=== PATIENT | female | born 1995 | race Two or more races ===

== ENCOUNTER 2025-08-09 08:50 | Emergency (ER) | payer OTHER ==
[~2025-08-09] VITALS: Ht 152.4 cm; Wt 72.6 kg
[2025-08-09 11:07] LABS: BASO % 0.4 % (0.1-1.2); EOS # 0.12 (0.04-0.54); EOS % 1.3 % (0.7-7.0); LYMPH # 3.55 (1.18-3.74); LYMPH % 37.3 % (19.3-53.1); MEAN PLATELET VOLUME 10.00 fl (9.4-12.4); MONO # 0.45 (0.24-0.82); MONO % 4.7 % (4.7-12.5); NEUT # 5.35 (1.56-6.13); NEUT % 56.1 % (34.0-71.1); RED CELL DISTRIBUTION WIDTH 11.2 % (11.6-14.4)
[2025-08-09 11:59] LABS: URINE APPEARANCE Clear; URINE BILIRRUBIN Negative (NEGATIVE); URINE BLOOD Negative; URINE COLOR Dark Yellow; URINE GLUCOSE Negative (NEGATIVE); URINE KETONE Trace (NEGATIVE); URINE LEUKOCYTE Trace; URINE NITRATE Negative; URINE PROTEIN Trace (NEGATIVE); URINE UROBILINOGEN 1.0 E.U./dl
[2025-08-09 12:01] LABS: URINE BACTERIA 1815.4 uL (0.0-1933); URINE EPITHELIAL CELLS 44.4 uL (0.0-38.8); URINE RBC 21.6 uL (0.0-20.8); URINE WBC 10.4 uL (0.0-23.2)
[2025-08-09 12:02] LABS: URINE CAST 0.14 uL (0.0-1.40)
[2025-08-09 12:26] LABS: ALT/SGPT 20.0 U/L (12-78); AST/SGOT 15.0 U/L (15-37); BILIRUBIN TOTAL 0.85 mg/dL (0.3-1.2); BUN CREA RATIO 10.0 (7.0-25.0); CREATININE SERUM 0.69 mg/dL (0.55-1.02); GFR 101.3; GLOBULINA 3.4 G/DL (2.4-3.5); GLUCOSE FASTING 87.0 mg/dL (65-100); OSMOLALITY SERUM 277.0 MOSM/KG (275-295)
== END 2025-08-09 15:09 | disposition left against medical advice (07) ==
LOC: ER 08:50
PROVIDERS: Student in an Organized Health Care Education/Training Program
DX: Z34.01 Encounter for supervision of normal first pregnancy, first trimester (principal); Z88.8 Allergy status to other drugs, medicaments and biological substances